=== PATIENT | female | born 1965 | race Caucasian/White ===

== ENCOUNTER 2023-06-08 12:55 | Emergency (ER) | payer OTHER, SELFPAY ==
[2023-06-08 13:00] VITALS: BP 145/87; PULSE 125; RESP 16; TEMP 36.8; O2SAT 98; BMI 29.3
--- NOTE | 2023-06-08 13:19 | XR_ITS ---
The [address] [address] Patient Name: STEPHY MILLER MRN: [id number] date: 1965 Sex: F Assigned Patient Location: ER Current Patient Location: Accession/Order Number: [id number] Exam Date: 06/08/2023 13:05 Report Date: 06/08/2023 13:55 At the request of: ROSY TOMAS Procedure: XR foot RT min 3V EXAM: XR foot RT min 3V HISTORY: right foot injury COMPARISON: None. TECHNIQUE: 3 views right foot FINDINGS: No acute displaced fracture or dislocation identified. Lisfranc joint is congruent on this nonweightbearing study. The midfoot appears congruent. Achilles enthesophyte is noted. Nonspecific subcutaneous edema about the ankle.. XR/XR foot RT min 3V IMPRESSION: Negative radiographic evaluation for fracture. Electronically authenticated by: SILVESTRE ROOT Date: 06/08/2023 13:55
--- NOTE | 2023-06-08 13:32 | ED.LOWEXI1 ---
HPI - Extremity Injury (Lower) General Chief Complaint: Extremity Injury, Lower Stated Complaint: R FOOT PAIN Time Seen by Provider: 06/08/23 12:58 Source: patient Mode of arrival: walk-in Limitations: no limitations History of Present Illness HPI Narrative: The patient twisted her right foot yesterday around 4pm and has been experiencing pain in the mid foot since. She took some Advil last night but nothing today. Pain worse with weight-bearing. No pain in the right ankle or right lower leg. She did not fall to the ground and did not injure her head, neck or back. Related Data Home Medications ?Medication ?Instructions ?Recorded ?Confirmed metoprolol succinate 200 mg 200 mg PO DAILY 06/08/23 06/08/23 tablet,extended release 24 hr Allergies Allergy/AdvReac Type Severity Reaction Status Date / Time Iodinated Contrast Media Allergy Unknown Verified 06/08/23 13:00 Penicillins Allergy Unknown Verified 06/08/23 13:00 Exam Narrative Exam Narrative: Nurses notes and vital signs reviewed and patient is not hypoxic. Afebrile General: Well-appearing and in no apparent distress. Skin: Warm, dry, no pallor noted. No rash. Cardiovascular: Normal peripheral perfusion. Respiratory: No accessory muscle use or respiratory distress. Musculoskeletal: RIGHT FOOT: tenderness to the right mid foot. Normal right achilles and heel. Toes right foot with normal ROM. No ankle or lower leg involvement - no calf or popliteal tenderness, no lower extremity edema/swelling Neurological: A&O x4. No cranial nerve dysfunction observed. No truncal ataxia. Moves all extremities. Sensation intact. Psychiatric: Cooperative and interactive. Normal mood and affect. Constitutional Vital Signs, click to edit/add: Last Vital Signs Temp 98.2 F 06/08/23 13:00 Pulse 125 H 06/08/23 13:00 Resp 16 06/08/23 13:00 BP 145/87 H 06/08/23 13:00 Pulse Ox 98 06/08/23 13:00 O2 Del Method Room Air 06/08/23 13:00 Course Vital Signs Vital signs: Vital Signs Temperature 98.2 F 06/08/23 13:00 Pulse Rate 125 H 06/08/23 13:00 Respiratory Rate 16 06/08/23 13:00 Blood Pressure 145/87 H 06/08/23 13:00 Pulse Oximetry 98 06/08/23 13:00 Oxygen Delivery Method Room Air 06/08/23 13:00 Temperature 98.2 F 06/08/23 13:00 Pulse Rate 125 H 06/08/23 13:00 Respiratory Rate 16 06/08/23 13:00 Blood Pressure 145/87 H 06/08/23 13:00 Pulse Oximetry 98 06/08/23 13:00 Oxygen Delivery Method Room Air 06/08/23 13:00 MDM - Extremity Injury (Lower) MDM Narrative Medical decision making narrative: xrays right foot do not reveal any acute fractures. ED nurse applied an deric wrap to the patient's right foot and then placed a post-op show to the right foot. She was encouraged to decrease activity and limit weight bearing until the pain decreases. Discussed rest, ice, continued use of the deric wrap for compression and keeping the foot elevated while inactive to prevent swelling. She was given referral information for Dr Cook in case the pain persists. Imaging Data xr foot: Radiologist's impression: Patient Name: STEPHY MILLER MRN: [facility]:[id number] date: 1965 Sex: F Assigned Patient Location: ER Current Patient Location: Accession/Order Number: [id number] Exam Date: 06/08/2023 13:05 Report Date: 06/08/2023 13:55 At the request of: ROSY TOMAS Procedure: XR foot RT min 3V EXAM: XR foot RT min 3V HISTORY: right foot injury COMPARISON: None. TECHNIQUE: 3 views right foot FINDINGS: No acute displaced fracture or dislocation identified. Lisfranc joint is congruent on this nonweightbearing study. The midfoot appears congruent. Achilles enthesophyte is noted. Nonspecific subcutaneous edema about the ankle.. IMPRESSION: Negative radiographic evaluation for fracture. Electronically authenticated by: SILVESTRE ROOT Date: 06/08/2023 13:55 Discharge Plan Discharge Stand Alone Forms: Portal Instructions Chief Complaint: Extremity Injury, Lower Clinical Impression: Right foot sprain Patient Disposition: Home, Self-Care Time of Disposition Decision: 13:38 Prescriptions / Home Meds: No Action metoprolol succinate 200 mg tablet extended release 24 hr 200 mg PO DAILY Print Language: Chinese Instructions: Foot Sprain (ED), P.R.I.C.E. Treatment (ED) Referrals: Physician,Non-Staff, [Primary Care Provider] - 1 week Discharge Date/Time: 06/08/23 13:57
== END 2023-06-08 13:57 | disposition home or self-care (01) ==
PROVIDERS: Emergency Provider Emergency Medicine
DX: S93.601A Unspecified sprain of right foot, initial encounter (principal); X50.1XXA Overexertion from prolonged static or awkward postures, initial encounter
CPT/HCPCS: 73630; 99283

== ENCOUNTER 2023-11-30 09:32 | Outpatient (OUT) | payer OTHER, SELFPAY ==
[2023-11-30 09:48] LABS: Basophils Absolute Auto 0.1 10^3/uL (0.0-0.1); Basophils Percent Auto 0.9 % (0.2-2.0); Eosinophils Absolute Auto 0.1 10^3/uL (0.0-0.7); Eosinophils Percent Auto 1.2 % (0.9-7.0); Hematocrit 42.9 % (36.0-48.0); Hemoglobin 14.6 g/dL (12.0-16.0); Immature Granulocytes Abs Auto 0.02 10^3/uL (0.00-0.03); Immature Granulocytes Pct Auto 0.2 % (0.0-0.5); Lymphocytes Absolute Auto 2.7 10^3/uL (1.2-3.8); Lymphocytes Percent Auto 30.1 % (20.5-60.0); Mean Corpuscular Hemoglobin 31.7 pg (26.7-34.0); Mean Corpuscular Volume 93.1 fL (81.0-99.0); Mean Platelet Volume 9.8 fL (9.5-13.5); Monocytes Absolute Auto 0.8 10^3/uL (0.3-0.8); Monocytes Percent Auto 8.6 % (1.7-12.0); Neutrophils Absolute Auto 5.2 10^3/uL (1.4-6.5); Platelet Count 302 10^3/uL (150-450); Red Blood Count 4.61 10^6/uL (4.20-5.40); Red Cell Distribution Width 12.6 % (11.0-15.0); White Blood Count 8.9 10^3/uL (4.0-11.0)
[2023-11-30 11:00] LABS: Alanine Aminotransferase 37 U/L (14-59); Albumin Globulin Ratio 1.2; Alkaline Phosphatase 149 U/L (46-116); Anion Gap 13.9; Aspartate Amino Transferase 25 U/L (15-37); BUN Creatinine Ratio 18.6; Bilirubin Total 0.7 mg/dL (0.2-1.0); Calcium 9.6 mg/dL (8.5-10.1); Carbon Dioxide 27.3 mmol/L (21.0-32.0); Chloride 103 mmol/L (98-107); Chol HDL Ratio 2.7; Cholesterol 206 mg/dL (<=200); Estimated GFR (African America >60 (>=60); Estimated GFR (Non-African Ame >60 (>=60); Globulin 3.3 g/dL; Glucose 98 mg/dL (74-106); HDL Cholesterol 76 mg/dL (40-60); Potassium 4.2 mmol/L (3.5-5.1); Sodium 140 mmol/L (136-145); Total Protein 7.3 g/dL (6.4-8.2); Triglycerides 120 mg/dL (<=150)
== END 2023-11-30 09:33 | disposition home or self-care (01) ==
LOC: LAB 09:34
PROVIDERS: Visit Provider Nurse Practitioner
DX: I50.22 Chronic systolic (congestive) heart failure (principal); E78.2 Mixed hyperlipidemia; E78.5 Hyperlipidemia, unspecified
CPT/HCPCS: 36415; 80053; 80061; 85025